=== PATIENT | female | born 1945 | race Caucasian/White ===

== ENCOUNTER → 2018-12-08 | Outpatient (CLI) | payer MEDICARE, OTHER ==
[2018-12-08 12:41] LABS: Bilirubin, Urine Neg (Neg); Blood, Urine Neg (Neg); Glucose Qualitative, Urine Neg (Neg); Ketones, Urine Neg (Neg); Leukocyte Esterase, Urine Neg (Neg); Nitrite, Urine Neg (Neg); Protein, Urine Neg (Neg); Urobilinogen, Urine NORM (Normal)
[2018-12-08 13:02] LABS: Appearance, Urine Clear (Clear); Color, Urine Yellow (P-Yellow)
== END | disposition home or self-care (01) ==
LOC: LAB SHORT 11:52 → LAB 11:52
PROVIDERS: Family Medicine
DX: N39.0 Urinary tract infection, site not specified (principal)
CPT/HCPCS: 81003

== ENCOUNTER 2019-02-05 18:18 | Emergency (ER) | payer MEDICARE, OTHER ==
[~2019-02-05] VITALS: Ht 167.6 cm; Wt 90.7 kg
[2019-02-05 18:36] LABS: BASOPHILS ABSOLUTE AUTO 0.04 K/mm3 (0.00-0.23); BASOPHILS PERCENT AUTO 1 % (0-2); EOSINOPHILS ABSOLUTE AUTO 0.37 K/mm3 (0.00-0.68); EOSINOPHILS PERCENT AUTO 7 % (0-6); Hematocrit 36.3 % (33.0-51.0); Hemoglobin 11.6 g/dL (11.5-16.0); IMMATURE GRAN ABSOLUTE AUTO 0.01 K/mm3 (0.00-0.10); IMMATURE GRAN PERCENT AUTO 0 % (0-1); LYMPHOCYTES ABSOLUTE AUTO 1.42 K/mm3 (0.84-5.20); LYMPHOCYTES PERCENT AUTO 28 % (21-46); MONOCYTES ABSOLUTE AUTO 0.76 K/mm3 (0.16-1.47); MONOCYTES PERCENT AUTO 15 % (4-13); Mean Corpuscular HGB 31.4 pg (26.0-34.0); Mean Corpuscular Volume 98 fL (80-100); Mean Platelet Volume 9.5 fL (9.1-12.4); NEUTROPHILS ABSOLUTE AUTO 2.57 K/mm3 (1.96-9.15); NEUTROPHILS PERCENT AUTO 50 % (41-73); Platelet Count 158 K/mm3 (150-400); RDW Coefficient Variation 13.2 % (11.7-14.2); RDW Standard Deviation 47.8 fL (35.1-46.3); Red Blood Cell Count 3.69 M/mm3 (3.80-5.20); White Blood Cell Count 5.17 K/mm3 (4.00-11.30)
[2019-02-05] MEDS ORDERED: Aspirin EC81 MG PO (18:43)
[2019-02-05] MEDS ORDERED: Amlodipine Bes2.5 MG PO (18:43)
[2019-02-05] MEDS ORDERED: Lipitor20 MG PO (18:44)
[2019-02-05] MEDS ORDERED: CARV6.25 PO (18:44)
[2019-02-05] MEDS ORDERED: MEMA10 PO (18:45)
[2019-02-05] MEDS ORDERED: Citalopram HBr40 MG PO (18:45)
[2019-02-05] MEDS ORDERED: POTA10T PO (18:46)
[2019-02-05] MEDS ORDERED: SPIR25 PO (18:46)
[2019-02-05] MEDS ORDERED: VITAMIN D35000 UNI2 PO (18:47)
[2019-02-05] MEDS ORDERED: MILK OF MA400 MG/5 M PO (18:47)
[2019-02-05] MEDS ORDERED: NITR.4SL SL (18:47)
[2019-02-05] MEDS ORDERED: FAMO20 PO (18:49)
[2019-02-05] MEDS ORDERED: FURO40 PO (18:49)
[2019-02-05] MEDS ORDERED: DONEPEZIL HCL23 MG PO (18:49)
[2019-02-05] MEDS ORDERED: Isosorbide Mono30 MG PO (18:50)
[2019-02-05] MEDS ORDERED: LEVSOD25 PO (18:50)
[2019-02-05] MEDS ORDERED: ZESTRIL40 M1 PO (18:51)
[2019-02-05] MEDS ORDERED: ACET325 PO (18:51)
[2019-02-05] MEDS ORDERED: ANTACID PLUS A355 M2 PO (18:52)
[2019-02-05] MEDS ORDERED: Anti-Diarrheal2 MG PO (18:53)
[2019-02-05] MEDS ORDERED: BISA10S PR (18:53)
[2019-02-05 19:00] LABS: Albumin, Blood 3.1 g/dL (3.4-5.0); Albumin/Globulin Ratio 0.8 (0.8-1.8); Bilirubin, Total 0.3 mg/dL (0.1-1.0); Bun/Creatinine Ratio 29.1 (12.0-20.0); Calcium, Blood 8.4 mg/dL (8.5-10.1); Creatinine, Blood 1.03 mg/dL (0.40-1.00); Globulin, Blood 4.1 g/dL (2.2-4.0); Total Protein, Blood 7.2 g/dL (6.4-8.2); Troponin I 0.022 ng/mL (0.000-0.040)
[2019-02-05] MEDS ORDERED: Prednisone20 MG PO (20:49)
== END 2019-02-05 21:10 | disposition home or self-care (01) ==
LOC: ER 18:18
PROVIDERS: Emergency Medicine
DX: J40 Bronchitis, not specified as acute or chronic (principal); R09.1 Pleurisy; Z79.899 Other long term (current) drug therapy; Z79.82 Long term (current) use of aspirin
CPT/HCPCS: 71046; 80053; 83880; 84484; 85025; 93005; 93010; 94640; 96374; 99285-25; J2930

== ENCOUNTER 2019-03-23 11:14 | Observation (INO) | payer MEDICARE, OTHER ==
[~2019-03-23] VITALS: Ht 167.6 cm; Wt 98.0 kg
[~2019-03-23 11:14] MED LIST: ACET325 PO; ANTACID PLUS A355 M2 PO; Amlodipine Bes2.5 MG PO; Anti-Diarrheal2 MG PO; Aspirin EC81 MG PO; BISA10S PR; CARV6.25 PO; Citalopram HBr40 MG PO; DONEPEZIL HCL23 MG PO; FAMO20 PO; FURO40 PO; Isosorbide Mono30 MG PO; LEVSOD25 PO; Lipitor20 MG PO; MEMA10 PO; MILK OF MA400 MG/5 M PO; NITR.4SL SL; POTA10T PO; Prednisone20 MG PO; SPIR25 PO; VITAMIN D35000 UNI2 PO; ZESTRIL40 M1 PO
[2019-03-23] MEDS ORDERED: ALBU90OI INH (11:36)
[2019-03-23] MEDS ORDERED: ALLERCLEAR10 MG PO (11:37)
[2019-03-23 11:52] LABS: BASOPHILS ABSOLUTE AUTO 0.04 K/mm3 (0.00-0.23); BASOPHILS PERCENT AUTO 1 % (0-2); EOSINOPHILS ABSOLUTE AUTO 0.18 K/mm3 (0.00-0.68); EOSINOPHILS PERCENT AUTO 2 % (0-6); Hematocrit 35.2 % (33.0-51.0); Hemoglobin 11.2 g/dL (11.5-16.0); IMMATURE GRAN ABSOLUTE AUTO 0.02 K/mm3 (0.00-0.10); IMMATURE GRAN PERCENT AUTO 0 % (0-1); LYMPHOCYTES ABSOLUTE AUTO 1.65 K/mm3 (0.84-5.20); LYMPHOCYTES PERCENT AUTO 22 % (21-46); MONOCYTES ABSOLUTE AUTO 0.72 K/mm3 (0.16-1.47); MONOCYTES PERCENT AUTO 9 % (4-13); Mean Corpuscular HGB 31.2 pg (26.0-34.0); Mean Corpuscular HGB Conc 31.8 g/dL (31.5-36.5); Mean Corpuscular Volume 98 fL (80-100); Mean Platelet Volume 9.1 fL (9.1-12.4); NEUTROPHILS ABSOLUTE AUTO 5.04 K/mm3 (1.96-9.15); NEUTROPHILS PERCENT AUTO 66 % (41-73); Platelet Count 171 K/mm3 (150-400); RDW Coefficient Variation 13.4 % (11.7-14.2); RDW Standard Deviation 49.1 fL (35.1-46.3); Red Blood Cell Count 3.59 M/mm3 (3.80-5.20); White Blood Cell Count 7.65 K/mm3 (4.00-11.30)
[2019-03-23 12:18] LABS: Albumin/Globulin Ratio 0.8 (0.8-1.8); Bilirubin, Total 0.7 mg/dL (0.1-1.0); Bun/Creatinine Ratio 27.5 (12.0-20.0); Calcium, Blood 8.2 mg/dL (8.5-10.1); Creatinine, Blood 1.02 mg/dL (0.40-1.00); Globulin, Blood 3.8 g/dL (2.2-4.0); Potassium, Blood 4.3 mmol/L (3.5-5.5); Total Protein, Blood 6.8 g/dL (6.4-8.2); Troponin I 0.024 ng/mL (0.000-0.040)
--- NOTE | 2019-03-23 17:11 | NUR ---
PT ADMITTED TO PCU 1 FROM ER FOR ATYPICAL CHEST PAIN. PT AWAKE AND ALERT ON ADMIT AT 1453. PT ABLE TO STAND AND WAS INCONTINENT OF URINE (BASELINE ISSUE). PT W UNSTEADY GAITREQUIRING SBA. PT CLEANED, ATTENDS PLACED, AND NEW GOWN GIVEN. VSS. PT C/O ATYPICAL CHEST PAIN LEFT OF MID STERNUM. PT STATES PAIN IS AN ACHE TO SHARP PAIN THAT RADIATES INTO LEFT CHEST AREA, THE PAIN LAST A MIN AND THEN DISAPPEARS. THE PAIN IS WORSE AND SHARP WITH A DEEP BREATH. THERE IS TENDERNESS TO THE AREA WITH TOUCHED WITH LIGHT PRESSURE. THE PAIN IS REPRODUCED WITH A DEEP BREATH OR TOUCH. PT STATES SHE FEELS PRESSURE WELL, "A FIVE POUND BRICK ON MY CHEST". THE PAIN IS A 7/10 AT THE WORST AND 0/10. THE PAIN IS INTERMITTENT. PT DOES NOT APPEAR TO BE IN ANY DISTRESS, SHE IS ON THE DROWSY SIDE. HER DAUGHTER IS AN EXCELLENT HISTORIAN AND ANSWERS MOST OF THE ADMITTING QUESTIONS. PT'S LUNGS ARE CLEAR, A CLICK IS HEARD AT S1 AND S2 PT HAS HAD AN AORTIC VALVE REPLACEMENT. PT DENIES ABD PAIN OR NAUSEA. PT DENIES SOB. ALL VITAL SIGNS ARE STABLE. NS IS STARTED AT 75CC/HR. PT IS INSTRUCTED TO CALL IF SHE EXPERINCES ANY CHEST PAIN/PRESSURE. PT HAS NOT COMPLAINED OF PAIN SINCE ADMISSION. THERE ARE SEVERAL BRUISES ON HER HIPS AND AND SIDE FROM THE FALL AT HOME EARLY THIS AM.
--- NOTE | 2019-03-23 17:51 | NUR ---
PT C/O SAME ATYPICAL CHEST PAIN WHILE EATING DINNER, 09/08. DR WEBSTER CALLED; MAALOX TO BE GIVEN. VSS
[2019-03-24 04:07] LABS: Hematocrit 31.4 % (33.0-51.0); Hemoglobin 9.9 g/dL (11.5-16.0); Mean Corpuscular HGB 30.7 pg (26.0-34.0); Mean Corpuscular HGB Conc 31.5 g/dL (31.5-36.5); Mean Corpuscular Volume 98 fL (80-100); Mean Platelet Volume 9.3 fL (9.1-12.4); Platelet Count 149 K/mm3 (150-400); RDW Coefficient Variation 13.3 % (11.7-14.2); RDW Standard Deviation 47.8 fL (35.1-46.3); Red Blood Cell Count 3.22 M/mm3 (3.80-5.20); White Blood Cell Count 4.88 K/mm3 (4.00-11.30)
[2019-03-24 04:25] LABS: Anion Gap 5 mmol/L (6-16); Blood Urea Nitrogen 26 mg/dL (8-24); CO2, Blood 26 mmol/L (21-32); Calcium, Blood 7.9 mg/dL (8.5-10.1); Chloride, Blood 110 mmol/L (98-108); Creatinine, Blood 0.93 mg/dL (0.40-1.00); Glomerular Filtration Rate >60 (60-); Glucose, Blood 90 mg/dL (70-99); Sodium, Blood 141 mmol/L (136-145)
--- NOTE | 2019-03-24 05:59 | NUR ---
SHIFT SUMMARY PT ALERT AND ORIENTED. VSS. AFEBRILE. ON RA WITH SATS ABOVE 92%. NO COMPLAINTS OF CHEST PAIN. ONE UNMEASUREDE VOID IN ATTENDS; PT IS INCONTINENT. LUNGS CTAB. PT HAS BRUISE ON R SIDE OF BODY FROM FALL. NO ACUTE ISSUES OVERNIGHT. WILL CONTINUE TO MONITOR.
--- NOTE | 2019-03-24 08:10 | NUR ---
PT SITTING ON SIDE OF BED, AMBULATED TO BR WITH SBA, INCON OF URINE, BUT WENT SOME IN TOILET, PULLUPS PROVIDED, WAS ABLE TO TOILET HERSELF, A/OX3, FORGETFUL, FOLLOWS COMMANDS WELL, STATES SHE HAS LOW ABD PAIN, HAS HAD NO STOOL FOR FEW DAYS, LUNGS ARE CLEAR DIM IN BASES, ON R/A, RESP EVEN AND UNLABORED, NO COUGH NOTED, HRR, TELE IN PLACE RUNNING SR WITH BBB IN 60'S, NO EDEMA NOTED, PPP+2, CAP REFILL <3SEC, VS STABLE, AFEBRILE, IV SITE IS CLEAR AND PATENT, BTX4, ABD FLAT SOFT NONTENDER, SKIN C/W/D, MAEW, SHELLY, CALL LIGHT IN REACH.
[2019-03-24] MEDS ORDERED: OMEPRAZOLE20 MG PO (08:36)
--- NOTE | 2019-03-24 10:31 | NUR ---
PT HAS BEEN DISCHARGED TO HOME, WENT OVER INSTRUCTIONS WITH HER, SHE VERBALIZED UNDERSTANDING. IV REMOVED INTACT. ONLY NEW MED IS [facility], THIS WAS FAXED TO [facility], HER DAUGHTER WILL BE PICKING HER UP. CALL LIGHT IN REACH.
--- NOTE | 2019-03-24 11:25 | NUR ---
Upon receiving an admit referral for spiritual care, I visit patient. Patient openly shares about her medical issues, her family history, her spiritual journey and the unanswered questions about her health. Patient voices her concerns about having to go to a specialist in [place]. I listen empathically, normalize patient's experience and provide anxiety containment and prayer. Patient responds well and shows signs of reduced stress. I will continue to remain available to patient and family.
--- NOTE | 2019-03-24 11:38 | NUR ---
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
== END 2019-03-24 11:35 | disposition home or self-care (01) ==
LOC: ER 11:14 → PCU 11:15
PROVIDERS: Emergency Medicine; Nurse Practitioner Acute Care; ADMIT Internal Medicine
DX: R07.9 Chest pain, unspecified (principal); S40.011A Contusion of right shoulder, initial encounter; I11.0 Hypertensive heart disease with heart failure; I50.22 Chronic systolic (congestive) heart failure; I25.10 Atherosclerotic heart disease of native coronary artery without angina pectoris; F03.90 Unspecified dementia, unspecified severity, without behavioral disturbance, psychotic disturbance, mood disturbance, and anxiety; J44.9 Chronic obstructive pulmonary disease, unspecified; F32.9 Major depressive disorder, single episode, unspecified; K21.9 Gastro-esophageal reflux disease without esophagitis; E03.9 Hypothyroidism, unspecified; G47.33 Obstructive sleep apnea (adult) (pediatric); Z79.82 Long term (current) use of aspirin; Z79.51 Long term (current) use of inhaled steroids; Z79.899 Other long term (current) drug therapy; Z95.1 Presence of aortocoronary bypass graft; Z86.73 Personal history of transient ischemic attack (TIA), and cerebral infarction without residual deficits; W06.XXXA Fall from bed, initial encounter
CPT/HCPCS: 36415; 71046; 80048; 80053; 83735; 83880; 84484; 85025; 85027; 90686; 93005; 93010; 94640; 94760; 96360; 99285-25; A9270; A9270-GY; G0008; G0378; J7030; J7040

== ENCOUNTER 2019-05-05 10:03 | Day surgery (SDC) | payer MEDICARE ==
[~2019-05-05 10:03] MED LIST changes: +ALBU90OI INH; +ALLERCLEAR10 MG PO; +OMEPRAZOLE20 MG PO
--- NOTE | 2019-05-05 12:21 | NUR ---
INTO STEP [facility]ANDA[facility] INTACT CLEAN AND DRY. GIVEN JUICE VXX FAMILY MEMBER AT BEDSIDE
--- NOTE | 2019-05-05 12:41 | NUR ---
ASSUMBED CARE OF PT. REPORT FROM MALENA WALLER. PT'S VSS. PT WITH C/O MILD DISCOMFORT AT SITE. ICE APPLIED. PT TOLERATING ORAL FLUID. CAREGIVER AT BEDSIDE. WILL CONTINUE TO MONITOR.
--- NOTE | 2019-05-05 13:26 | NUR ---
PT MEETS CRITERIA FOR D/C. RADIOLOGY NOTIFIED. Discharge instructions reviewed with patient. Patient verbalizes understanding. Copy given to patient to take home. Discharged via wheelchair to private car for ride home.
== END 2019-05-05 13:24 | disposition home or self-care (01) ==
LOC: CT 10:03
DX: C96.9 Malignant neoplasm of lymphoid, hematopoietic and related tissue, unspecified (principal)
CPT/HCPCS: 27040; 77012

== ENCOUNTER → 2019-06-17 | Outpatient (CLI) | payer MEDICARE, OTHER ==
[2019-06-17 14:29] LABS: Adenovirus F 40/41 Not Detected (NOT DETECT); Astrovirus Not Detected (NOT DETECT); Campylobacter Sp Not Detected (NOT DETECT); Cryptosporidium Not Detected (NOT DETECT); Cyclospora Cayetanensis Not Detected (NOT DETECT); E. Coli O157 Not Detected (NOT DETECT); Entamoeba Histolytica Not Detected (NOT DETECT); Enteroaggregative E. coli-EAEC Not Detected (NOT DETECT); Enteropathogenic E. coli-EPEC Not Detected (NOT DETECT); Enterotoxigenic E. coli-ETEC Not Detected (NOT DETECT); Giardia Lamblia Not Detected (NOT DETECT); Norovirus GI/GII Not Detected (NOT DETECT); Plesiomonas Shigelloides Not Detected (NOT DETECT); Rotavirus A Not Detected (NOT DETECT); Salmonella Sp Not Detected (NOT DETECT); Sapovirus Not Detected (NOT DETECT); Shiga Toxin-prod E. coli-STEC Not Detected (NOT DETECT); Shigella/Enteroin E. coli-EIEC Not Detected (NOT DETECT); Vibrio Cholerae Not Detected (NOT DETECT); Vibrio Sp Not Detected (NOT DETECT); Yersinia Enterocolitica Not Detected (NOT DETECT)
== END | disposition home or self-care (01) ==
LOC: LAB 10:31 → LAB SHORT 10:31 → LAB FUT 05-11 09:05 → EDSTATUS 05-11 09:05
PROVIDERS: Internal Medicine Gastroenterology
DX: K92.1 Melena (principal); R10.9 Unspecified abdominal pain; R19.7 Diarrhea, unspecified
CPT/HCPCS: 0097U; 83993

== ENCOUNTER 2019-09-28 13:29 | Emergency (ER) | payer MEDICARE, OTHER ==
[~2019-09-28] VITALS: Ht 167.6 cm; Wt 86.2 kg
[2019-09-28] MEDS ORDERED: Abilify2 MG PO (13:41)
[2019-09-28] MEDS ORDERED: Sanctura20 MG PO (13:43)
[2019-09-28 15:11] LABS: BASOPHILS ABSOLUTE AUTO 0.02 K/mm3 (0.00-0.23); BASOPHILS PERCENT AUTO 0 % (0-2); EOSINOPHILS ABSOLUTE AUTO 0.37 K/mm3 (0.00-0.68); EOSINOPHILS PERCENT AUTO 5 % (0-6); Hematocrit 29.1 % (33.0-51.0); Hemoglobin 8.8 g/dL (11.5-16.0); IMMATURE GRAN ABSOLUTE AUTO 0.03 K/mm3 (0.00-0.10); IMMATURE GRAN PERCENT AUTO 0 % (0-1); LYMPHOCYTES ABSOLUTE AUTO 0.88 K/mm3 (0.84-5.20); LYMPHOCYTES PERCENT AUTO 12 % (21-46); MONOCYTES ABSOLUTE AUTO 0.65 K/mm3 (0.16-1.47); MONOCYTES PERCENT AUTO 9 % (4-13); Mean Corpuscular HGB 35.1 pg (26.0-34.0); Mean Corpuscular HGB Conc 30.2 g/dL (31.5-36.5); Mean Corpuscular Volume 116 fL (80-100); Mean Platelet Volume 9.5 fL (9.1-12.4); NEUTROPHILS ABSOLUTE AUTO 5.44 K/mm3 (1.96-9.15); NEUTROPHILS PERCENT AUTO 74 % (41-73); Platelet Count 141 K/mm3 (150-400); RDW Coefficient Variation 18.7 % (11.7-14.2); RDW Standard Deviation 80.8 fL (35.1-46.3); Red Blood Cell Count 2.51 M/mm3 (3.80-5.20); White Blood Cell Count 7.39 K/mm3 (4.00-11.30)
== END 2019-09-28 19:27 | disposition home or self-care (01) ==
LOC: ER 13:29
PROVIDERS: Emergency Medicine
DX: S42.001A Fracture of unspecified part of right clavicle, initial encounter for closed fracture (principal); Z79.899 Other long term (current) drug therapy; Z79.82 Long term (current) use of aspirin; I10 Essential (primary) hypertension; I25.2 Old myocardial infarction; E03.9 Hypothyroidism, unspecified; E78.5 Hyperlipidemia, unspecified; W18.30XA Fall on same level, unspecified, initial encounter
CPT/HCPCS: 36415; 70450; 70498; 72125; 85025; 99284-25; A9270; Q9967

== ENCOUNTER 2020-02-17 08:34 | Emergency (ER) | payer MEDICARE, OTHER ==
[~2020-02-17] VITALS: Ht 167.6 cm; Wt 81.7 kg
[~2020-02-17 08:34] MED LIST changes: +Abilify2 MG PO; +CITA20 PO; -Citalopram HBr40 MG PO; +FURO20 PO; -FURO40 PO; +OMEP20ER PO; -OMEPRAZOLE20 MG PO; +Sanctura20 MG PO; -VITAMIN D35000 UNI2 PO; +VITAMIN D5000 UNIT PO
[2020-02-17 09:17] LABS: BASOPHILS ABSOLUTE AUTO 0.02 K/mm3 (0.00-0.23); BASOPHILS PERCENT AUTO 0 % (0-2); EOSINOPHILS ABSOLUTE AUTO 0.21 K/mm3 (0.00-0.68); EOSINOPHILS PERCENT AUTO 4 % (0-6); Hematocrit 30.8 % (33.0-51.0); Hemoglobin 9.3 g/dL (11.5-16.0); IMMATURE GRAN ABSOLUTE AUTO 0.01 K/mm3 (0.00-0.10); IMMATURE GRAN PERCENT AUTO 0 % (0-1); LYMPHOCYTES ABSOLUTE AUTO 0.87 K/mm3 (0.84-5.20); LYMPHOCYTES PERCENT AUTO 17 % (21-46); MONOCYTES ABSOLUTE AUTO 0.41 K/mm3 (0.16-1.47); MONOCYTES PERCENT AUTO 8 % (4-13); Mean Corpuscular HGB 32.9 pg (26.0-34.0); Mean Corpuscular HGB Conc 30.2 g/dL (31.5-36.5); Mean Corpuscular Volume 109 fL (80-100); Mean Platelet Volume 9.9 fL (9.1-12.4); NEUTROPHILS ABSOLUTE AUTO 3.57 K/mm3 (1.96-9.15); NEUTROPHILS PERCENT AUTO 70 % (41-73); Platelet Count 81 K/mm3 (150-400); RDW Coefficient Variation 14.1 % (11.7-14.2); RDW Standard Deviation 56.7 fL (35.1-46.3); Red Blood Cell Count 2.83 M/mm3 (3.80-5.20); White Blood Cell Count 5.09 K/mm3 (4.00-11.30)
[2020-02-17 09:29] LABS: Bilirubin, Total 0.5 mg/dL (0.1-1.0); Bun/Creatinine Ratio 27.8 (12.0-20.0); Calcium, Blood 8.3 mg/dL (8.5-10.1); Creatinine, Blood 1.08 mg/dL (0.40-1.00); Globulin, Blood 2.9 g/dL (2.2-4.0); Total Protein, Blood 5.9 g/dL (6.4-8.2); Troponin I 0.034 ng/mL (0.000-0.040)
[2020-02-17] MEDS ORDERED: Estrace Vagin42.5 GM VAG (10:21)
[2020-02-17] MEDS ORDERED: HYDR1TAB94 PO ×2 (10:23→10:36)
[2020-02-17] MEDS ORDERED: MIRALAX17 GM PO (10:27)
[2020-02-17] MEDS ORDERED: COLACE100 MG PO (10:33)
[2020-02-17] MEDS ORDERED: METO10 PO (10:37)
[2020-02-17] MEDS ORDERED: Ondansetron Odt8 MG MM (10:38)
== END 2020-02-17 12:30 | disposition home or self-care (01) ==
LOC: ER 08:34
PROVIDERS: Emergency Medicine
DX: R07.9 Chest pain, unspecified (principal); I25.2 Old myocardial infarction; I10 Essential (primary) hypertension; E78.5 Hyperlipidemia, unspecified; E03.9 Hypothyroidism, unspecified; I25.10 Atherosclerotic heart disease of native coronary artery without angina pectoris; Z79.82 Long term (current) use of aspirin; Z79.899 Other long term (current) drug therapy
CPT/HCPCS: 36415; 71046; 80053; 84484; 85025; 93005; 93010; 99285-25